=== PATIENT | male | born 1950 | race Caucasian/White ===

== ENCOUNTER 2017-02-12 17:08 | Emergency (ER) | payer MEDICARE, BC ==
[2017-02-12 17:33] VITALS: BP 141/89
--- NOTE | 2017-02-12 18:25 | UC ---
Ear Complaint HPI - HPI Summary HPI Summary: 66 y/o male presents to the urgent care c/o B/L ear pain with decrease hearing after his PCP removed the cerumen from both ear 2 days ago. PCP unable to removed all from the RT ear. The LF ear was bleeding after procedure. Pain is 6 /10 LF>RT with swelling. Mild PALM. Pt denies fever, dizziness, SOB, chest pain, N /V/D. - History of Current Complaint Chief Complaint: UCEar Stated Complaint: RIGHT EAR PAIN/NECK PAIN Time Seen by Provider: 02/12/17 18:14 Hx Obtained From: Patient Onset/Duration: Gradual Onset, Lasting Days, Still Present Severity Initially: Moderate Severity Currently: Moderate Pain Intensity: 6 Pain Scale Used: 0-10 Numeric Aggravating Factors: Nothing Alleviating Factors: Nothing Associated Signs/Symptoms: Positive: Trauma to Ear - removal of cerumen by PCP, Swelling @ - LF ear - Allergies/Home Medications Allergies/Adverse Reactions: Allergies Allergy/AdvReac Type Severity Reaction Status Date / Time Morphine Allergy Unknown Verified 02/12/17 17:25 Reaction Details Penicillins Allergy Unknown Verified 02/12/17 17:25 Reaction Details Home Medications: Home Medications Amitriptyline TAB* [Elavil TAB*] 75 mg PO BEDTIME 02/12/17 [History Confirmed ] Aspirin EC Low Dose* [Ecotrin EC Low Dose 81 MG*] 81 mg PO DAILY 02/12/17 [ History Confirmed 02/12/17] Atorvastatin* [Lipitor 40 MG*] 40 mg PO DAILY 02/12/17 [History Confirmed ] Cyanocobalamin TAB* [Vitamin B12 TAB*] 500 mcg PO DAILY 02/12/17 [History Confirmed 02/12/17] Gabapentin CAP(*) [Neurontin 400 mg CAP(*)] 800 mg PO TID 02/12/17 [History Confirmed 02/12/17] Lisinopril/HCTZ 20/25(NF) [Zestoretic 20/25(NF)] 1 tab PO DAILY 02/12/17 [ History Confirmed 02/12/17] Omeprazole CAP* [Prilosec CAP* 20 MG] 20 mg PO DAILY 02/12/17 [History Confirmed 02/12/17] Ticagrelor* [Brilinta 90 MG*] 90 mg PO BID 02/12/17 [History Confirmed 02/12/17] PMH/Surg Hx/FS Hx/Imm Hx Previously Healthy: Yes Endocrine History: Dyslipidemia Cardiovascular History: Cardiac Disease, Hypertension GI/ History: Gastroesophageal Reflux - Surgical History Surgical History: Yes Surgery Procedure, Year, and Place: MOUTH SX-FOR IDA ANGINA, cardiac stents x5 09/2016 - Family History Known Family History: Positive: Cardiac Disease, Hypertension - Social History Occupation: Retired Lives: With Family Alcohol Use: None Substance Use Type: None Smoking Status (MU): Former Smoker When Did the Patient Quit Smoking/Using Tobacco: APPROX 5 YRS Review of Systems Constitutional: Negative Skin: Negative Eyes: Negative ENT: Ear Ache - B/L ear pain with swelling Respiratory: Negative Cardiovascular: Negative Gastrointestinal: Negative Genitourinary: Negative Motor: Negative Musculoskeletal: Negative Neurological: Negative Psychological: Negative All Other Systems Reviewed And Are Negative: Yes Physical Exam Triage Information Reviewed: Yes Appearance: Well-Appearing, No Pain Distress, Well-Nourished Vital Signs: Initial Vital Signs Temp 97.3 F 02/12/17 17:26 Pulse 61 02/12/17 17:26 Resp 16 02/12/17 17:26 BP 141/89 02/12/17 17:26 Pulse Ox 97 02/12/17 17:26 Vital Signs Reviewed: Yes Eye Exam: Normal Eyes: Positive: Conjunctiva Clear - PERRLA, EOMI fundi grossly normal ENT: Positive: Normal ENT inspection, Pharynx normal, Other: - RT external ear impacted with cerumen, unable to visualize TM. LF exteranl ear sherry with moderate moderate erythema and dicrete point of previous bleeding, mild yellowish drainage. Pinna tender to palpaton.. Negative: Nasal congestion, Nasal drainage, Tonsillar swelling, Tonsillar exudate Dental Exam: Normal Neck exam: Normal Neck: Positive: Enlarged Nodes @ - anterior cervical lymphnode tender to palpation Respiratory Exam: Normal Respiratory: Positive: Chest non-tender, Lungs clear, Normal breath sounds Cardiovascular Exam: Normal Cardiovascular: Positive: RRR, No Murmur, Pulses Normal, Brisk Capillary Refill Abdominal Exam: Normal Abdomen Description: Positive: Nontender, No Organomegaly, Soft. Negative: CVA Tenderness (R), CVA Tenderness (L) Bowel Sounds: Positive: Present Musculoskeletal Exam: Normal Musculoskeletal: Positive: Strength Intact, ROM Intact, No Edema Neurological Exam: Normal Psychological Exam: Normal Skin Exam: Normal Ear Complaint Course/Dx - Course Course Of Treatment: 66 y/o male presents to the urgent care c/o B/L ear pain with decrease hearing after his PCP removed the cerumen from both ear 2 days ago. PCP unable to removed all from the RT ear. The LF ear was bleeding after procedure. Pain is 6/10 LF>RT with swelling. Mild PALM. Pt denies fever, dizziness , SOB, chest pain, N/V/D.HX obtained, PE performed, Meds reviewed. PT Rx corticosporin Otic drops for his LF otitis externa. Advised to contnie with the Carbamide peroxide on his Rt ear and f/u with his PCP in 2-3 days. Pt understood and agreed - Differential Dx/Diagnosis Differential Diagnosis/HQI/PQRI: Barotrauma, Cerumen Impaction, Mastoiditis, Otitis Externa, Otitis Media, Perforated TM Provider Diagnoses: 1- Left acute otits externa. 2- RT ear impacted with cerumen Discharge - Discharge Plan Condition: Stable Disposition: HOME Prescriptions: Neomyc/Polym/HC 1% OTIC SUSP* [Cortisporin Otic Susp 1%*] 4 drop LEFT EAR QID # 1 btl Patient Education Materials: Otitis Externa (ED), Low Sodium Diet (ED) Referrals: Meek Bustos DO [Primary Care Provider] - 1 Week Additional Instructions: Please apply otic drops on your left ear. Continue with the Carbamide peroxide otic drops on your RT ear. continue taking the tylenol q4-6hrs to alleviate symptoms of swelling and pain. If symptoms do not improve please f/u with your PCP for further evaluation and treatment Your BP is border line elevated today, please decrease salt in your diet and f/ u with your PCP for further management.
== END 2017-02-12 18:48 | disposition home or self-care (01) ==
LOC: UCCORT 17:08
DX: H60.502 Unspecified acute noninfective otitis externa, left ear (principal); H61.21 Impacted cerumen, right ear; E78.5 Hyperlipidemia, unspecified; I11.9 Hypertensive heart disease without heart failure; K21.9 Gastro-esophageal reflux disease without esophagitis; Z79.82 Long term (current) use of aspirin; Z88.5 Allergy status to narcotic agent; Z88.0 Allergy status to penicillin; Z87.891 Personal history of nicotine dependence
CPT/HCPCS: 99212; G0463

== ENCOUNTER 2017-10-24 19:50 | Emergency (ER) | payer MEDICARE, BC ==
[2017-10-24 20:49] VITALS: BP 142/72
--- NOTE | 2017-10-24 21:05 | UC ---
Skin Complaint HPI - HPI Summary HPI Summary: sliver in L index finger x 2 days. tried to remove it without success. - History of Current Complaint Chief Complaint: UCSkin Time Seen by Provider: 10/24/17 20:59 Stated Complaint: SLIVER R FINGER Pain Intensity: 4 - Allergy/Home Medications Allergies/Adverse Reactions: Allergies Allergy/AdvReac Type Severity Reaction Status Date / Time morphine Allergy Unknown Verified 10/24/17 20:52 Reaction Details Penicillins Allergy Unknown Verified 10/24/17 20:52 Reaction Details Review of Systems Constitutional: Negative Skin: Negative Eyes: Other - splint L index ENT: Negative Respiratory: Negative Cardiovascular: Negative Gastrointestinal: Negative Genitourinary: Negative Motor: Negative Neurovascular: Negative Musculoskeletal: Negative Neurological: Negative Psychological: Negative Is Patient Immunocompromised?: No All Other Systems Reviewed And Are Negative: Yes PMH/Surg Hx/FS Hx/Imm Hx Endocrine History: Dyslipidemia Cardiovascular History: Cardiac Disease, Hypertension GI/ History: Gastroesophageal Reflux - Surgical History Surgical History: Yes Surgery Procedure, Year, and Place: MOUTH SX-FOR I[facility]GIN[facility], cardiac stents x5 09/2016 - Family History Known Family History: Positive: Cardiac Disease, Hypertension - Social History Lives: With Family Alcohol Use: None Substance Use Type: None Smoking Status (MU): Former Smoker When Did the Patient Quit Smoking/Using Tobacco: APPROX 5 YRS - Immunization History Hx Tetanus, Diphtheria Vaccination: Yes Vaccination Up to Date: Yes Physical Exam Triage Information Reviewed: Yes Appearance: Well-Appearing Vital Signs: Initial Vital Signs Temp 98.5 F 10/24/17 20:43 Pulse 67 10/24/17 20:43 Resp 17 10/24/17 20:43 BP 142/72 10/24/17 20:43 Pulse Ox 99 10/24/17 20:43 Vital Signs Reviewed: Yes Eyes: Positive: Conjunctiva Clear ENT: Positive: Normal ENT inspection Neck: Positive: Supple, Nontender, No Lymphadenopathy Respiratory: Positive: Lungs clear, Normal breath sounds Cardiovascular: Positive: RRR, No Murmur Abdomen Description: Positive: Nontender, No Organomegaly, Soft Bowel Sounds: Positive: Present Musculoskeletal: Positive: ROM Intact Neurological: Positive: Alert Psychological: Positive: Age Appropriate Behavior Skin Exam: Normal, Other - sliver in L volar index finger. splinter visible. s/v /m intact to the hand. Course/Dx - Course Course Of Treatment: PROCEDURE: SITE PRPE BETADINE AND SPLINTER GRASPED WITH SPLINTER FORCEP. IT WAS EASILY REMOVED AND IS ABOUT 3MM LONG. SITE CLEANED WITH BETADINE. SITE COVERED WITH BACITRACIN AND BANDAGE. PT TOLERATED WELL. - Diagnoses Provider Diagnoses: Splinter removal L index finger. Discharge - Sign-Out/Discharge Documenting (check all that apply): Discharge/Admit/Transfer - Discharge Plan Condition: Improved Disposition: HOME Patient Education Materials: Soft Tissue Foreign Body (ED) Referrals: Meek Bustos DO [Primary Care Provider] - 5 Days - Billing Disposition and Condition Condition: IMPROVED Disposition: HOME
== END 2017-10-24 21:16 | disposition home or self-care (01) ==
LOC: UCCORT 19:50
DX: S60.451A Superficial foreign body of left index finger, initial encounter (principal); W45.8XXA Other foreign body or object entering through skin, initial encounter; Y92.9 Unspecified place or not applicable; Z87.891 Personal history of nicotine dependence; Z88.5 Allergy status to narcotic agent; Z88.0 Allergy status to penicillin
CPT/HCPCS: 10120; 99211; G0463

== ENCOUNTER 2018-07-01 09:57 | Emergency (ER) | payer MEDICARE, BC ==
[2018-07-01 10:12] VITALS: BP 151/81
--- NOTE | 2018-07-01 10:30 | UC ---
UC General HPI - HPI Summary HPI Summary: pain in L lower gum/tooth area since yesterday. he called his dentist but can not get in until tuesday. hx Ludwigs angina thus wants to be evaluated. no swelling. - History of Current Complaint Chief Complaint: UCDentalProblem Stated Complaint: DENTAL CONCERN Time Seen by Provider: 07/01/18 10:17 Hx Obtained From: Patient Onset/Duration: Gradual Onset Pain Intensity: 1 Aggravating: chewing Alleviating: brushing and cold water rinses Associated Signs & Symptoms: Negative: Edema, Fever - Allergy/Home Medications Allergies/Adverse Reactions: Allergies Allergy/AdvReac Type Severity Reaction Status Date / Time morphine Allergy Unknown Verified 07/01/18 10:12 Reaction Details Penicillins Allergy Unknown Verified 07/01/18 10:12 Reaction Details PMH/Surg Hx/FS Hx/Imm Hx - Additional Past Medical History Additional PMH: neuropathy toes, Ludwigs angina. Endocrine History: Dyslipidemia Cardiovascular History: Cardiac Disease, Hypertension GI/ History: Gastroesophageal Reflux - Surgical History Surgical History: Yes Surgery Procedure, Year, and Place: MOUTH SX-FOR I[facility] ANGINA, cardiac stents x5 09/2016 - Family History Known Family History: Positive: Cardiac Disease, Hypertension - Social History Lives: With Family Alcohol Use: None Substance Use Type: None Smoking Status (MU): Former Smoker When Did the Patient Quit Smoking/Using Tobacco: APPROX 5 YRS - Immunization History Hx Tetanus, Diphtheria Vaccination: Yes Vaccination Up to Date: Yes Review of Systems All Other Systems Reviewed And Are Negative: Yes Constitutional: Positive: Negative Skin: Positive: Negative Eyes: Positive: Negative ENT: Positive: Dental Pain Respiratory: Positive: Negative Cardiovascular: Positive: Negative Gastrointestinal: Positive: Negative Genitourinary: Positive: Negative Motor: Positive: Negative Neurovascular: Positive: Negative Musculoskeletal: Positive: Negative Neurological: Positive: Negative Psychological: Positive: Negative Physical Exam Triage Information Reviewed: Yes Appearance: Well-Appearing Vital Signs: Initial Vital Signs Temp 97.4 F 07/01/18 10:08 Pulse 65 07/01/18 10:08 Resp 18 07/01/18 10:08 BP 151/81 07/01/18 10:08 Pulse Ox 100 07/01/18 10:08 Vital Signs Reviewed: Yes Eyes: Positive: Conjunctiva Clear ENT: Positive: Pharynx normal, TMs normal. Negative: Nasal congestion, Nasal drainage Dental: Positive: Other: - lower-lateral gum with erythema and tenderness but no swelling or fluctuance. No submandibular adenoapthy. Negative: Percussion Tenderness @, Gross Decay/Caries @, Dental Fracture @ Neck: Positive: Supple, Nontender, No Lymphadenopathy Respiratory: Positive: Lungs clear, Normal breath sounds Cardiovascular: Positive: RRR, No Murmur Abdomen Description: Positive: Nontender, No Organomegaly, Soft Bowel Sounds: Positive: Present Musculoskeletal: Positive: ROM Intact Neurological: Positive: Alert Psychological: Positive: Normal Response To Family, Age Appropriate Behavior Skin Exam: Normal Skin: Negative: Rashes Course/Dx - Course Course Of Treatment: given exam, txing for gum infection and pain. no concern for Ludwigs angina. - Diagnoses Provider Diagnosis: Gum inflammation Discharge - Sign-Out/Discharge Documenting (check all that apply): Patient Departure All imaging exams completed and their final reports reviewed: No Studies - Discharge Plan Condition: Stable Disposition: HOME Prescriptions: Clindamycin Cap(NF) [Clindamycin Cap 300 mg Cap(NF)] 300 mg PO Q6H 7 Days #28 cap Hydrocodone/Acetaminophen [[place] 5-325 Tablet] 1 each PO Q6HR PRN #10 tablet MDD 4 PRN Reason: Pain (Dental) Patient Education Materials: Dental Abscess (ED), Toothache (ED) Referrals: Meek Bustos DO [Primary Care Provider] - If Needed Additional Instructions: FOLLOW UP DR FORTE, YOUR DENTIST SOON POSSIBLE. - Billing Disposition and Condition Condition: STABLE Disposition: Home
== END 2018-07-01 10:40 | disposition home or self-care (01) ==
LOC: UCCORT 09:57
DX: K05.10 Chronic gingivitis, plaque induced (principal); Z88.5 Allergy status to narcotic agent; Z88.0 Allergy status to penicillin; Z87.891 Personal history of nicotine dependence
CPT/HCPCS: 99212; G0463